=== PATIENT | female | born 1990 | race African-American/Black ===

== ENCOUNTER 2016-07-29 21:14 | Emergency (ER) | payer OTHER ==
[~2016-07-29] VITALS: Ht 154.9 cm; Wt 110.0 kg
[2016-07-29] MEDS ORDERED: PROAIR HFA8.5 GM IH (22:56)
[2016-07-29] MEDS ORDERED: PROVENTIL,2.5 MG/3 M IH (22:56)
[2016-07-29] MEDS ORDERED: PREDNISONE20 MG PO (23:09)
[2016-07-29 23:11] VITALS: BP 123/87
== END 2016-07-29 23:11 | disposition home or self-care (01) ==
LOC: EXP 21:14 → EME 21:14 → EXP 23:11
DX: J06.9 Acute upper respiratory infection, unspecified (principal); J45.20 Mild intermittent asthma, uncomplicated; R07.9 Chest pain, unspecified; R50.9 Fever, unspecified
CPT/HCPCS: 71020; 80048; 85027; 94640; 99281; 99283; J7512

== ENCOUNTER 2016-11-23 14:25 | Emergency (ER) | payer OTHER ==
[~2016-11-23] VITALS: Ht 157.5 cm; Wt 108.0 kg
[~2016-11-23 14:25] MED LIST: PREDNISONE20 MG PO; PROAIR HFA8.5 GM IH; PROVENTIL,2.5 MG/3 M IH
[2016-11-23] MEDS ORDERED: KEFLEX500 MG PO (16:19)
[2016-11-23] MEDS ORDERED: MOTRIN800 MG PO (16:19)
[2016-11-23 17:14] VITALS: BP 125/50
== END 2016-11-23 17:15 | disposition home or self-care (01) ==
LOC: EME 14:25
PROC: 0HQFXZZ Repair Right Hand Skin, External Approach (ICD-10-PCS; principal; 2016-11-23)
DX: S61.212A Laceration without foreign body of right middle finger without damage to nail, initial encounter (principal); W22.8XXA Striking against or struck by other objects, initial encounter; W25.XXXA Contact with sharp glass, initial encounter
CPT/HCPCS: 73140; 99281; 99284

== ENCOUNTER 2016-12-06 10:15 | Emergency (ER) | payer OTHER ==
[~2016-12-06] VITALS: Ht 157.5 cm; Wt 107.7 kg
[~2016-12-06 10:15] MED LIST changes: +KEFLEX500 MG PO; +MOTRIN800 MG PO
[2016-12-06 11:05] VITALS: BP 128/83
== END 2016-12-06 11:05 | disposition home or self-care (01) ==
LOC: EME 10:15
DX: S61.212D Laceration without foreign body of right middle finger without damage to nail, subsequent encounter (principal)
CPT/HCPCS: 99281; 99283

== ENCOUNTER 2017-04-21 17:40 | Emergency (ER) | payer OTHER ==
[~2017-04-21] VITALS: Ht 157.5 cm; Wt 113.4 kg
[2017-04-21] MEDS ORDERED: PREDNISONE20 MG PO (18:58)
[2017-04-21 19:47] VITALS: BP 104/76
== END 2017-04-21 19:50 | disposition home or self-care (01) ==
LOC: EME 17:40
DX: T78.1XXA Other adverse food reactions, not elsewhere classified, initial encounter (principal); R13.10 Dysphagia, unspecified; X58.XXXA Exposure to other specified factors, initial encounter; Z91.018 Allergy to other foods
CPT/HCPCS: 99281; 99284; J7512

== ENCOUNTER 2017-08-28 07:28 | Emergency (ER) | payer OTHER ==
[~2017-08-28] VITALS: Ht 157.5 cm; Wt 113.0 kg
[2017-08-28 08:04] LABS: HEMATOCRIT 32.8 % (36.0-46.0); HEMOGLOBIN 10.7 G/DL (11.9-15.5); MCH 25.1 PG (29.0-34.0); MCHC 32.6 G/DL (30.0-36.0); MCV 76.8 FL (83-99); PLATELET COUNT 319 K/uL (156-360); RBC DIS.WIDTH-CV 16.6 % (11.8-14.6); RBC DIS.WIDTH-SD 46.3 % (39-53); RED BLOOD COUNT 4.27 M/uL (3.80-5.20); WHITE BLOOD COUNT 8.7 K/uL (4.1-10.2)
[2017-08-28 08:06] LABS: APPEARANCE CLEAR ((CLEAR)); BILIRUBIN NEGATIVE; BLOOD MODERATE; COLOR YELLOW ((YELLOW)); GLUCOSE (STRIP) NEGATIVE; KETONES NEGATIVE; LEUKOCYTES TRACE; NITRITE NEGATIVE; PROTEIN (STRIP) NEGATIVE; SPECIFIC GRAVITY 1.025 (1.000-1.030); UROBILINOGEN 0.2 MG/DL (0.2-1.0)
[2017-08-28 08:09] LABS: BACTERIA RARE /HPF; EPITHELIAL CELLS 1+ /HPF; MUCUS TRACE /LPF; RED BLOOD CELLS 0-5 /HPF (0-5); UCUL ADDED? NO; WHITE BLOOD CELLS 0-5 /HPF (0-5)
[2017-08-28 08:14] LABS: CHLORIDE 110 mEq/L (99-109); POTASSIUM 4.5 mEq/L (3.7-5.4); SODIUM 140 mEq/L (136-147)
[2017-08-28 08:16] LABS: GLUCOSE 90 mg/dL (70-99)
[2017-08-28 08:20] LABS: CREATININE 0.7 mg/dL (0.6-1.3); GFR ESTIMATE (CALCULATED) > 59 mL/min/
[2017-08-28 08:21] LABS: UREA NITROGEN (BUN) 7 mg/dL (9-23)
[2017-08-28 08:28] LABS: QUANTITATIVE HCG < 4.0 MIU/ML
[2017-08-28 10:10] LABS: SOURCE SWAB
[2017-08-28 10:51] VITALS: BP 121/82
[2017-08-28 18:46] LABS: CANDIDA DNA PROBE NEGATIVE; GARDNERELLA DNA PROBE NEGATIVE; TRICHOMONAS DNA PROBE NEGATIVE
== END 2017-08-28 10:53 | disposition home or self-care (01) ==
LOC: EME 07:28
PROVIDERS: Physician Assistant
DX: R10.2 Pelvic and perineal pain (principal); N89.8 Other specified noninflammatory disorders of vagina; Z11.3 Encounter for screening for infections with a predominantly sexual mode of transmission; J45.909 Unspecified asthma, uncomplicated; Z91.010 Allergy to peanuts
CPT/HCPCS: 80048; 81003; 84702; 85027; 87210; 87480; 87491; 87510; 87591; 87660; 99281; 99285; J0696